=== PATIENT | female | born 1965 | race Hispanic/Latino ===

== ENCOUNTER 2019-09-16 12:52 | Emergency (ER) | payer SELFPAY ==
[2019-09-16 13:25] LABS: Absolute Lymphocytes (CBC) 2.8 K/uL (0.7-4.9); Basophils % 0.7 % (0-1.3); Hematocrit 40.2 % (36.0-45.0); Lymphocytes % 35.3 % (15.3-44.8); MPV 9.2 fL (7.6-11.3); RBC Red Blood Cell Count 4.35 M/uL (3.86-4.86)
[2019-09-16 13:39] LABS: Potassium 3.5 mmol/L (3.5-5.1)
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
[2019-09-16 16:02] VITALS: O2SAT 100
[2019-09-16 16:09] VITALS: BP 166/109; TEMP 98.3
== END 2019-09-16 15:52 | disposition home or self-care (01) ==
LOC: ER 12:52
DX: S22.31XA Fracture of one rib, right side, initial encounter for closed fracture (principal); S22.20XA Unspecified fracture of sternum, initial encounter for closed fracture; V49.40XA Driver injured in collision with unspecified motor vehicles in traffic accident, initial encounter
CPT/HCPCS: 36415; 70450; 71260; 72100; 72125; 80048; 85025; 99284; Q9967